=== PATIENT | male | born 1960 | race Caucasian/White ===

== ENCOUNTER 2023-12-03 11:46 | Emergency (ER) | payer OTHER, SELFPAY ==
[2023-12-03] VITALS (34 sets, daily range): BP systolic 114–144; BP diastolic 78–96; PULSE 72–88; TEMP 36.8; O2SAT 79–96
--- NOTE | 2023-12-03 12:15 | ECG_ITS ---
[facility] Test Date: 2023-12-03 Pat Name: AMBER SAL Department: Room: - Gender: Male Can Feeder: : 1960 Requested By: Order Number: [id number] Reading MD: RICH HECTOR Measurements Intervals [place] Rate: 87 P: 35 NH: 166 QRS: 40 QRSD: 106 T: 47 QT: 362 QTc: 407 Interpretive Statements 1100 Sinus rhythm 4068 Nonspecific [place] abnormality 9130 borderline ECG No previous ECG available for comparison Electronically Signed On 12-03-2023 21:09:13 EDT by RICH HECTOR
--- NOTE | 2023-12-03 12:18 | PC.NURSE ---
Patient arrives via squad c/o not feeling right. when asked what he means by this states that his legs feel week. EMS reports that patient is seen frequently in [place] and they diverted him to this facility. patient is poor historian but states, i was just discharged saturday for leg weakness from [place]. Patient states, i have bulging disc and my legs are acting up again. patient reports he accidentally took his night time meds today but is unable to verbalize what all he took. Patient also admits to smoking crack 2 days ago.
[2023-12-03 12:28] LABS: Basophils Absolute Auto 0.1 10^3/uL (0.0-0.1); Basophils Percent Auto 0.8 % (0.2-2.0); Eosinophils Absolute Auto 0.2 10^3/uL (0.0-0.7); Hematocrit 39.4 % (42.0-54.0); Immature Granulocytes Abs Auto 0.09 10^3/uL (0.00-0.03); Immature Granulocytes Pct Auto 1.1 % (0.0-0.5); Lymphocytes Absolute Auto 0.8 10^3/uL (1.2-3.8); Lymphocytes Percent Auto 9.5 % (20.5-60.0); Mean Corpuscular Hemoglobin 29.1 pg (25.9-34.0); Mean Corpuscular Volume 88.3 fL (80.0-94.0); Mean Platelet Volume 9.3 fL (9.5-13.5); Monocytes Absolute Auto 0.9 10^3/uL (0.3-0.8); Monocytes Percent Auto 10.7 % (1.7-12.0); Neutrophils Absolute Auto 6.4 10^3/uL (1.4-6.5); Neutrophils Percent Auto 75.9 % (43.0-75.0); Platelet Count 185 10^3/uL (150-450); Red Blood Count 4.46 10^6/uL (4.70-6.10); Red Cell Distribution Width 15.2 % (11.0-15.0); White Blood Count 8.4 10^3/uL (4.0-11.0)
--- NOTE | 2023-12-03 12:41 | PC.NURSE ---
Posion control alerted with knowledge of nightime medications the were taken during the day today. Recommended observing for 4 hours and just being aware for hypotension. No further instructions.
[2023-12-03 12:43] LABS: Alanine Aminotransferase 43 U/L (16-63); Albumin Level 3.3 g/dL (3.4-5.0); Alkaline Phosphatase 167 U/L (46-116); Aspartate Amino Transferase 18 U/L (15-37); BUN Creatinine Ratio 8.9; Bilirubin Total 0.3 mg/dL (0.2-1.0); Calcium 8.9 mg/dL (8.5-10.1); Carbon Dioxide 29.7 mmol/L (21.0-32.0); Chloride 101 mmol/L (98-107); Estimated GFR (African America >60 (>=60); Estimated GFR (Non-African Ame >60 (>=60); Globulin 3.2 g/dL; Glucose 94 mg/dL (74-106); Potassium 3.7 mmol/L (3.5-5.1); Sodium 135 mmol/L (136-145); Total Protein 6.5 g/dL (6.4-8.2); Troponin I High Sensitivity 5.3 pg/mL (4.0-76.1)
[2023-12-03 12:56] LABS: Creatine Kinase 61 U/L (39-308)
[2023-12-03 13:35] LABS: INR 2.27; Prothrombin Time 22.2 sec (9.0-11.6)
[2023-12-03] MEDS: HYDROCODONE/ACET 5-325 MG TABLET 1 TAB PO (14:53)
--- NOTE | 2023-12-03 15:58 | ED.GENADUL1 ---
Documented by User: CHRISTINE Garcia 12/03/23 20:16 HPI HPI - General Adult General Chief complaint: Weakness Stated complaint: WEAKNESS Time Seen by Provider: 12/03/23 12:22 Source: patient Mode of arrival: ambulance Limitations: no limitations History of Present Illness HPI narrative: 63-year-old male presents to the emergency department via EMS with complaint of accidental overdose. Patient states he accidentally took his nighttime medications this morning. States feels well otherwise. Nursing contacted poison control and was advised to monitor blood pressure as this would be the only concern with what he took. Patient took hydroxyzine, mirtazapine, Cymbalta, risperidone, amitriptyline, risperidone, buspirone, melatonin, Restoril, cyclobenzaprine, oxcarbazepine, pantoprazole, warfarin. He took the normal dosing that he would take at night. He does complain of bilateral leg pain, but this is chronic. Quality:?As above Severity:?Moderate Timing:?As above Context: Normal setting and activity? Modifying factors:?None Associated symptoms: None Related Data Home Medications ?Medication ?Instructions ?Recorded ?Confirmed amitriptyline 150 mg tablet 150 mg PO .QHS 12/03/23 12/03/23 atorvastatin 20 mg tablet (Lipitor) 20 mg PO BEDTIME 12/03/23 12/03/23 buspirone 15 mg tablet 15 mg PO TID 12/03/23 12/03/23 calcium citrate 250 mg PO BID 12/03/23 12/03/23 cyclobenzaprine 10 mg tablet 10 mg PO BEDTIME PRN at bedtime 12/03/23 12/03/23 docusate sodium 100 mg capsule 100 mg PO DAILY 12/03/23 12/03/23 (Colace) duloxetine 30 mg capsule,delayed 30 mg PO DAILY 12/03/23 12/03/23 release (Cymbalta) gabapentin 300 mg capsule 600 mg PO TID 12/03/23 12/03/23 hydroxyzine HCl 50 mg tablet 50 mg PO TID 12/03/23 12/03/23 melatonin 10 mg tablet 10 mg PO BEDTIME PRN sleep 12/03/23 12/03/23 mirtazapine 45 mg tablet 45 mg PO .qhs 12/03/23 12/03/23 oxcarbazepine 300 mg tablet 300 mg PO BID 12/03/23 12/03/23 pantoprazole 40 mg tablet,delayed 40 mg PO DAILY 12/03/23 12/03/23 release risperidone 0.5 mg disintegrating 0.5 mg PO DAILY 12/03/23 12/03/23 tablet risperidone 2 mg tablet (Risperdal) 2 mg PO BEDTIME 12/03/23 12/03/23 temazepam 30 mg capsule (Restoril) mg PO BEDTIME PRN sleep 12/03/23 warfarin 2 mg tablet 2 mg PO DAILY 12/03/23 12/03/23 Allergies Allergy/AdvReac Type Severity Reaction Status Date / Time lithium Allergy Mild feel funny Verified 12/03/23 11:56 lurasidone [From Latuda] Allergy Mild feel funny Verified 12/03/23 11:56 Opioid HPI Opioid Management Most Recent Opioid Data: No Data to Display Review of Systems ROS Narrative CONST: Denies fever, chills HENT: Denies congestion, sore throat EYES: Denies eye redness, visual disturbance RESP: Denies cough, shortness of breath CV: Denies chest pain, palpitations GI: Denies abd pain, nausea, vomiting : Denies dysuria, flank pain MS: + myalgias (legs). Denies back pain SKIN: Denies color change, rash NEURO: Denies numbness, weakness PSYCHIATRIC: Denies confusion, agitation Exam Narrative Exam Narrative: Vital signs reviewed Nurses notes noted CONST: Nontoxic, well appearing, well nourished, in no distress.? No diaphoresis.?? HENT: normocephalic, atraumatic, moist mucous membrane, no abnormalities of the nose noted, hearing normal EYES: normal appearing conjunctiva, no apparent discharge bilat NECK: normal appearance CV: normal rate, regular rhythm, no murmur RESP: normal effort, speaking in complete sentences. Lung sounds clear and equal bilat.? No wheezes, rales, rhonchi GI: normal bowel sounds, soft, no distension, nontender : no CVA tenderness MS: no edema, tenderness SKIN: no pallor NEURO: A&Ox 3, no focal findings PSYCH: normal mood, affect Constitutional Vital Signs, click to edit/add: Last Vital Signs Temp 98.2 F 12/03/23 11:56 Pulse 79 12/03/23 16:20 Resp 15 12/03/23 16:20 BP 138/96 H 12/03/23 16:01 Pulse Ox 93 L 12/03/23 16:20 O2 Del Method Room Air 12/03/23 11:56 Course Vital Signs Vital signs: Vital Signs Blood Pressure 142/86 H 12/03/23 11:50 Temperature 98.2 F 12/03/23 11:56 Pulse Rate 79 12/03/23 16:20 Respiratory Rate 15 12/03/23 16:20 Blood Pressure 138/96 H 12/03/23 16:01 Pulse Oximetry 93 L 12/03/23 16:20 Oxygen Delivery Method Room Air 12/03/23 11:56 Medical Decision Making MDM Narrative Medical decision making narrative: This is a pleasant 63-year-old male who presented to the emergency department via EMS after accidentally ingesting his nighttime medicines this morning. Poison control contacted and we were advised to monitor patient for 4 hours., Particularly his blood pressure. Patient complains of some leg pain, but states this is chronic. On arrival, afebrile, vital signs are stable. On exam, nontoxic, well-appearing patient in no distress. Heart regular rate and rhythm. Lung sounds clear and equal bilaterally. No peripheral edema. Labs reveal no leukocytosis, anemia, thrombocytopenia. PT 22.2, INR 2.27, PTT 54. No electrolyte imbalance, renal impairment. LFTs unremarkable. Lipase was 12. Patient remained stable during ED course. Favor accidental overdose Hypotension less likely based on monitoring Patient monitored for over 4 hours without complication. Disposition ? The patient was discharged. Plan: Patient will be discharged to home. Condition at time of disposition: stable ? Advised to follow up with primary provider. Advised to return for any worsening and/or development of new, concerning signs or symptoms PLEASE NOTE: Portions of the medical record may have been produced using electronic security business analyst and may contain errors with respect to translation of words which may not have been identified prior to finalization of the chart. Medical Records Medical records reviewed: Yes I reviewed the patient's medical records Lab Data Lab results reviewed: Yes I reviewed the patient's lab results Labs: Lab Results 12/03/23 Range/Units 12:08 WBC 8.4 (4.0-11.0) 10^3/uL RBC 4.46 L (4.70-6.10) 10^6/uL Hgb 13.0 L (14.0-18.0) g/dL Hct 39.4 L (42.0-54.0) % MCV 88.3 (80.0-94.0) fL MCH 29.1 (25.9-34.0) pg MCHC 33.0 (29.9-35.2) g/dL RDW 15.2 H (11.0-15.0) % Plt Count 185 (150-450) 10^3/uL MPV 9.3 L (9.5-13.5) fL Neut % (Auto) 75.9 H (43.0-75.0) % Lymph % (Auto) 9.5 L (20.5-60.0) % [place] % (Auto) 10.7 (1.7-12.0) % Eos % (Auto) 2.0 (0.9-7.0) % Baso % (Auto) 0.8 (0.2-2.0) % Neut # (Auto) 6.4 (1.4-6.5) 10^3/uL Lymph # (Auto) 0.8 L (1.2-3.8) 10^3/uL [place] # (Auto) 0.9 H (0.3-0.8) 10^3/uL Eos # (Auto) 0.2 (0.0-0.7) 10^3/uL Baso # (Auto) 0.1 (0.0-0.1) 10^3/uL Abs Immat Gran (auto) 0.09 H (0.00-0.03) 10^3/uL Imm/Tot Granulo (auto) 1.1 H (0.0-0.5) % PT 22.2 H (9.0-11.6) sec INR 2.27 APTT 54.0 H* (22.3-36.2) sec Sodium 135 L (136-145) mmol/L Potassium 3.7 (3.5-5.1) mmol/L Chloride 101 (98-107) mmol/L Carbon Dioxide 29.7 (21.0-32.0) mmol/L Anion Gap 8.0 BUN 8.0 (7.0-18.0) mg/dL Creatinine 0.90 (0.70-1.30) mg/dL Est GFR ( Amer) >60 (>=60) Est GFR (Non-Af Amer) >60 (>=60) BUN/Creatinine Ratio 8.9 Glucose 94 (74-106) mg/dL Calcium 8.9 (8.5-10.1) mg/dL Total Bilirubin 0.3 (0.2-1.0) mg/dL AST 18 (15-37) U/L ALT 43 (16-63) U/L Alkaline Phosphatase 167 H (46-116) U/L Total Creatine Kinase 61 (39-308) U/L Troponin I High Sens 5.3 (4.0-76.1) pg/mL Total Protein 6.5 (6.4-8.2) g/dL Albumin 3.3 L (3.4-5.0) g/dL Globulin 3.2 g/dL Albumin/Globulin Ratio 1.0 Lipase 12.0 L (16.0-77.0) U/L Discharge Plan Discharge Stand Alone Forms: Portal Instructions Chief Complaint: Weakness Clinical Impression: Accidental overdose Qualifiers: Encounter type: initial encounter Qualified Code(s): T50.901A - Poisoning by unspecified drugs, medicaments and biological substances, accidental (unintentional), initial encounter Patient Disposition: Home, Self-Care Time of Disposition Decision: 15:58 Condition: Good Mode of Transportation: Other Prescriptions / Home Meds: No Action hydroxyzine HCl 50 mg tablet 50 mg PO TID mirtazapine 45 mg tablet 45 mg PO .qhs duloxetine [Cymbalta] 30 mg capsule,delayed release(DR/EC) 30 mg PO DAILY risperidone 0.5 mg tablet,disintegrating 0.5 mg PO DAILY amitriptyline 150 mg tablet 150 mg PO .QHS risperidone [Risperdal] 2 mg tablet 2 mg PO BEDTIME buspirone 15 mg tablet 15 mg PO TID melatonin 10 mg tablet 10 mg PO BEDTIME PRN (Reason: sleep) temazepam [Restoril] 30 mg capsule PO BEDTIME PRN (Reason: sleep) cyclobenzaprine 10 mg tablet 10 mg PO BEDTIME PRN (Reason: at bedtime) oxcarbazepine 300 mg tablet 300 mg PO BID calcium citrate 250 mg calcium tablet 250 mg PO BID docusate sodium [Colace] 100 mg capsule 100 mg PO DAILY atorvastatin [Lipitor] 20 mg tablet 20 mg PO BEDTIME pantoprazole 40 mg tablet,delayed release (DR/EC) 40 mg PO DAILY warfarin 2 mg tablet 2 mg PO DAILY Rx Instructions: 4 mg T-TH-S-S 2 mg -- gabapentin 300 mg capsule 600 mg PO TID Print Language: Palauan Instructions: Adult Overdose (ED) Referrals: Physician,Non-Staff, MD [Primary Care Provider] - 1 week Discharge Date/Time: 12/03/23 16:28 Documented by User: Christian Castro MD 12/03/23 20:31 HPI HPI - General Adult General Chief complaint: Weakness Stated complaint: WEAKNESS Time Seen by Provider: 12/03/23 12:22 Related Data Home Medications ?Medication ?Instructions ?Recorded ?Confirmed amitriptyline 150 mg tablet 150 mg PO .QHS 12/03/23 12/03/23 atorvastatin 20 mg tablet (Lipitor) 20 mg PO BEDTIME 12/03/23 12/03/23 buspirone 15 mg tablet 15 mg PO TID 12/03/23 12/03/23 calcium citrate 250 mg PO BID 12/03/23 12/03/23 cyclobenzaprine 10 mg tablet 10 mg PO BEDTIME PRN at bedtime 12/03/23 12/03/23 docusate sodium 100 mg capsule 100 mg PO DAILY 12/03/23 12/03/23 (Colace) duloxetine 30 mg capsule,delayed 30 mg PO DAILY 12/03/23 12/03/23 release (Cymbalta) gabapentin 300 mg capsule 600 mg PO TID 12/03/23 12/03/23 hydroxyzine HCl 50 mg tablet 50 mg PO TID 12/03/23 12/03/23 melatonin 10 mg tablet 10 mg PO BEDTIME PRN sleep 12/03/23 12/03/23 mirtazapine 45 mg tablet 45 mg PO .qhs 12/03/23 12/03/23 oxcarbazepine 300 mg tablet 300 mg PO BID 12/03/23 12/03/23 pantoprazole 40 mg tablet,delayed 40 mg PO DAILY 12/03/23 12/03/23 release risperidone 0.5 mg disintegrating 0.5 mg PO DAILY 12/03/23 12/03/23 tablet risperidone 2 mg tablet (Risperdal) 2 mg PO BEDTIME 12/03/23 12/03/23 temazepam 30 mg capsule (Restoril) mg PO BEDTIME PRN sleep 12/03/23 warfarin 2 mg tablet 2 mg PO DAILY 12/03/23 12/03/23 Allergies Allergy/AdvReac Type Severity Reaction Status Date / Time lithium Allergy Mild feel funny Verified 12/03/23 11:56 lurasidone [From Latuda] Allergy Mild feel funny Verified 12/03/23 11:56 Opioid HPI Opioid Management Most Recent Opioid Data: No Data to Display Exam Constitutional Vital Signs, click to edit/add: Last Vital Signs Temp 98.2 F 12/03/23 11:56 Pulse 79 12/03/23 16:20 Resp 15 12/03/23 16:20 BP 138/96 H 12/03/23 16:01 Pulse Ox 93 L 12/03/23 16:20 O2 Del Method Room Air 12/03/23 11:56 Course Vital Signs Vital signs: Vital Signs Blood Pressure 142/86 H 12/03/23 11:50 Temperature 98.2 F 12/03/23 11:56 Pulse Rate 79 12/03/23 16:20 Respiratory Rate 15 12/03/23 16:20 Blood Pressure 138/96 H 12/03/23 16:01 Pulse Oximetry 93 L 12/03/23 16:20 Oxygen Delivery Method Room Air 12/03/23 11:56 Medical Decision Making [facility] Narrative Medical decision making narrative: This is a pleasant 63-year-old male who presented to the emergency department via EMS after accidentally ingesting his nighttime medicines this morning. Poison control contacted and we were advised to monitor patient for 4 hours., Particularly his blood pressure. Patient complains of some leg pain, but states this is chronic. On arrival, afebrile, vital signs are stable. On exam, nontoxic, well-appearing patient in no distress. Heart regular rate and rhythm. Lung sounds clear and equal bilaterally. No peripheral edema. Labs reveal no leukocytosis, anemia, thrombocytopenia. PT 22.2, INR 2.27, PTT 54. No electrolyte imbalance, renal impairment. LFTs unremarkable. Lipase was 12. Patient remained stable during ED course. Favor accidental overdose Hypotension less likely based on monitoring Patient monitored for over 4 hours without complication. Disposition ? The patient was discharged. Plan: Patient will be discharged to home. Condition at time of disposition: stable ? Advised to follow up with primary provider. Advised to return for any worsening and/or development of new, concerning signs or symptoms PLEASE NOTE: Portions of the medical record may have been produced using electronic security business analyst and may contain errors with respect to translation of words which may not have been identified prior to finalization of the chart. I, Dr Castro, have reviewed the above progress note and course of action in the ER; agree with the above. I have gone over history and physical, and discussed disposition and treatment plan with the patient. Lab Data Labs: Lab Results 12/03/23 Range/Units 12:08 WBC 8.4 (4.0-11.0) 10^3/uL RBC 4.46 L (4.70-6.10) 10^6/uL Hgb 13.0 L (14.0-18.0) g/dL Hct 39.4 L (42.0-54.0) % MCV 88.3 (80.0-94.0) fL MCH 29.1 (25.9-34.0) pg MCHC 33.0 (29.9-35.2) g/dL RDW 15.2 H (11.0-15.0) % Plt Count 185 (150-450) 10^3/uL MPV 9.3 L (9.5-13.5) fL Neut % (Auto) 75.9 H (43.0-75.0) % Lymph % (Auto) 9.5 L (20.5-60.0) % [place] % (Auto) 10.7 (1.7-12.0) % Eos % (Auto) 2.0 (0.9-7.0) % Baso % (Auto) 0.8 (0.2-2.0) % Neut # (Auto) 6.4 (1.4-6.5) 10^3/uL Lymph # (Auto) 0.8 L (1.2-3.8) 10^3/uL [place] # (Auto) 0.9 H (0.3-0.8) 10^3/uL Eos # (Auto) 0.2 (0.0-0.7) 10^3/uL Baso # (Auto) 0.1 (0.0-0.1) 10^3/uL Abs Immat Gran (auto) 0.09 H (0.00-0.03) 10^3/uL Imm/Tot Granulo (auto) 1.1 H (0.0-0.5) % PT 22.2 H (9.0-11.6) sec INR 2.27 APTT 54.0 H* (22.3-36.2) sec Sodium 135 L (136-145) mmol/L Potassium 3.7 (3.5-5.1) mmol/L Chloride 101 (98-107) mmol/L Carbon Dioxide 29.7 (21.0-32.0) mmol/L Anion Gap 8.0 BUN 8.0 (7.0-18.0) mg/dL Creatinine 0.90 (0.70-1.30) mg/dL Est GFR ( Amer) >60 (>=60) Est GFR (Non-Af Amer) >60 (>=60) BUN/Creatinine Ratio 8.9 Glucose 94 (74-106) mg/dL Calcium 8.9 (8.5-10.1) mg/dL Total Bilirubin 0.3 (0.2-1.0) mg/dL AST 18 (15-37) U/L ALT 43 (16-63) U/L Alkaline Phosphatase 167 H (46-116) U/L Total Creatine Kinase 61 (39-308) U/L Troponin I High Sens 5.3 (4.0-76.1) pg/mL Total Protein 6.5 (6.4-8.2) g/dL Albumin 3.3 L (3.4-5.0) g/dL Globulin 3.2 g/dL Albumin/Globulin Ratio 1.0 Lipase 12.0 L (16.0-77.0) U/L ECG Data Attestation: I personally reviewed and interpreted this ECG as follows: (EKG interpretation. Normal sinus rhythm 87 beats a minute. Normal axis deviation. No acute ST elevation, no acute ectopy. Artifact noted. QTc of 407. Nonspecific ST changes.) Discharge Plan Discharge Stand Alone Forms: Portal Instructions Chief Complaint: Weakness Clinical Impression: Accidental overdose Qualifiers: Encounter type: initial encounter Qualified Code(s): T50.901A - Poisoning by unspecified drugs, medicaments and biological substances, accidental (unintentional), initial encounter Patient Disposition: Home, Self-Care Time of Disposition Decision: 15:58 Condition: Good Mode of Transportation: Other Prescriptions / Home Meds: No Action hydroxyzine HCl 50 mg tablet 50 mg PO TID mirtazapine 45 mg tablet 45 mg PO .qhs duloxetine [Cymbalta] 30 mg capsule,delayed release(DR/EC) 30 mg PO DAILY risperidone 0.5 mg tablet,disintegrating 0.5 mg PO DAILY amitriptyline 150 mg tablet 150 mg PO .QHS risperidone [Risperdal] 2 mg tablet 2 mg PO BEDTIME buspirone 15 mg tablet 15 mg PO TID melatonin 10 mg tablet 10 mg PO BEDTIME PRN (Reason: sleep) temazepam [Restoril] 30 mg capsule PO BEDTIME PRN (Reason: sleep) cyclobenzaprine 10 mg tablet 10 mg PO BEDTIME PRN (Reason: at bedtime) oxcarbazepine 300 mg tablet 300 mg PO BID calcium citrate 250 mg calcium tablet 250 mg PO BID docusate sodium [Colace] 100 mg capsule 100 mg PO DAILY atorvastatin [Lipitor] 20 mg tablet 20 mg PO BEDTIME pantoprazole 40 mg tablet,delayed release (DR/EC) 40 mg PO DAILY warfarin 2 mg tablet 2 mg PO DAILY Rx Instructions: 4 mg T-TH-S-S 2 mg M-W- gabapentin 300 mg capsule 600 mg PO TID Print Language: Palauan Instructions: Adult Overdose (ED) Referrals: Physician,Non-Staff, MD [Primary Care Provider] - 1 week Discharge Date/Time: 12/03/23 16:28
== END 2023-12-03 16:28 | disposition home or self-care (01) ==
PROVIDERS: Physician Assistant; Emergency Provider Emergency Medicine
DX: T50.911A Poisoning by multiple unspecified drugs, medicaments and biological substances, accidental (unintentional), initial encounter (principal)
CPT/HCPCS: 36415; 80053; 82550; 83690; 84484; 85025; 85610; 85730; 93005; 99284